=== PATIENT | female | born 1985 | race Caucasian/White ===

== ENCOUNTER 2024-01-10 09:39 | Emergency (ER) | payer OTHER ==
[~2024-01-10] VITALS: Ht 165.1 cm; Wt 107.0 kg
[2024-01-10 09:41] VITALS: O2SAT 100
[2024-01-10] MEDS ORDERED: LIDOCAINE HCL/EPINEPHRINE 1%-EPI 1:100,000 50ML VIAL INFIL ONE (10:15)
[2024-01-10 10:51] VITALS: TEMP 98.5
[2024-01-10] MEDS: ACETAMINOPHEN 325MG TABLET PO ONE (10:51)
[2024-01-10] MEDS: TETANUS, DIPHTHERIA, PERTUSSIS VAC/PF 0.5ML (>10YR OLD) IM ONE (10:59)
[2024-01-10] MEDS: LIDOCAINE HCL/EPINEPHRINE 1%-EPI 1:100,000 20ML VIAL INFIL NR (11:00)
[2024-01-10 11:59] VITALS: BP 141/92; PULSE 92; RESP 18
[2024-01-10] MEDS: ONDANSETRON HCL 4MG/2ML INJ IM ONE (11:59)
[2024-01-10] MEDS: MORPHINE SULFATE 4 MG/ML INJ (FOR IV/IM USE) IM ONE (11:59)
[2024-01-10] MEDS ORDERED: BO1 TP (13:01)
[2024-01-10] MEDS ORDERED: IBUP-2029 MT (13:01)
== END 2024-01-10 13:18 | disposition home or self-care (01) ==
LOC: ER 09:39
DX: S81.012A Laceration without foreign body, left knee, initial encounter (principal); R51.9 Headache, unspecified; Z98.51 Tubal ligation status; W22.8XXA Striking against or struck by other objects, initial encounter; Y93.89 Activity, other specified; Y92.89 Other specified places as the place of occurrence of the external cause; Y99.8 Other external cause status
CPT/HCPCS: 99285; 70450; 73562; 90715; 12004; 90471; 96372; J3490; J2405; J2270